=== PATIENT | female | born 1960 | race Caucasian/White ===

== ENCOUNTER → 2024-08-13 09:41 | Outpatient (BNVA) | payer MEDICARE, SELFPAY | PROVIDERS: Referring Provider Family Medicine; Visit Provider Specialist | DX: G24.01 Drug induced subacute dyskinesia (principal) | CPT/HCPCS: 99204 ==

== ENCOUNTER → 2024-10-16 13:57 | Outpatient (BNVA) | payer MEDICARE, SELFPAY | PROVIDERS: Referring Provider Family Medicine; Visit Provider Specialist | DX: G24.01 Drug induced subacute dyskinesia (principal) | CPT/HCPCS: 99213 ==

== ENCOUNTER → 2025-01-15 14:00 | Outpatient (BNVA) | payer MEDICARE, MEDICAID, SELFPAY | PROVIDERS: Referring Provider Family Medicine; Visit Provider Specialist | DX: G24.01 Drug induced subacute dyskinesia (principal); R03.0 Elevated blood-pressure reading, without diagnosis of hypertension | CPT/HCPCS: 99213 ==